=== PATIENT | male | born 2005 | race African-American/Black ===

== ENCOUNTER 2023-10-15 02:14 | Emergency (ER) | payer MEDICAID ==
[~2023-10-15] VITALS: Ht 188 cm; Wt 118.0 kg
[2023-10-15 02:16] VITALS: TEMP 98.1; O2SAT 98
[2023-10-15 03:38] LABS: BASOPHILS % 0.6 % (0.0-2.0); DIFFERENTIAL COMMENT 0; EOSINOPHILS % 1.1 % (0.0-5.0); HEMATOCRIT. 39.7 % (42.0-52.0); HEMOGLOBIN. 12.5 g/dL (14.0-18.0); LYMPHOCYTES % 19.4 % (20.0-50.0); MEAN CORPUSCULAR HEMOGLOBIN 22.5 pg (28.0-32.0); MEAN CORPUSCULAR HGB CONC 31.6 g/dL (31.0-37.0); MEAN CORPUSCULAR VOLUME 71.1 fL (80.0-94.0); MONOCYTES % 12.4 % (2.0-8.0); NEUTROPHILS % 66.5 % (40.0-76.0); PLATELET 190 x1000/uL (130-400); RED BLOOD CELL COUNT 5.58 mill/uL (4.7-6.1); RED CELL DISTRIBUTION WIDTH 14.6 % (11.6-14.6); WHITE BLOOD COUNT 7.3 x1000/uL (4.5-11.0)
[2023-10-15 03:44] LABS: ALANINE AMINOTRANSFERASE 65 IU/L (10-49); ASPARTATE AMINOTRANSFERASE 161 IU/L (<34); BILIRUBIN TOTAL 0.4 mg/dL (0.1-1.0); CALCIUM 8.5 mg/dL (8.7-10.4); CARBON DIOXIDE 26 mEq/L (21-32); CHLORIDE 105 mEq/L (98-107); CREATININE 1.1 mg/dL (0.6-1.3); GLUCOSE 92 mg/dL (70-105); POTASSIUM 3.8 mEq/L (3.5-5.1); PROTEIN TOTAL 6.2 g/dL (6.0-8.3); SODIUM 136 mEq/L (136-145); UREA NITROGEN BLOOD 19 mg/dL (9-23)
[2023-10-15] MEDS ORDERED: IBUP-2028 MT (04:37)
[2023-10-15 05:41] VITALS: BP 132/74; PULSE 84; RESP 15
== END 2023-10-15 05:49 | disposition home or self-care (01) ==
LOC: ER 02:14
DX: R09.1 Pleurisy (principal)
CPT/HCPCS: 80053; 83690; 85025; 36415; 71045; 93005; 99285; Z7610 ×3